=== PATIENT | male | born 1950 | race Caucasian/White ===

== ENCOUNTER 2018-04-08 08:12 | Day surgery (SDC) | payer MEDICARE, OTHER ==
[2018-04-08] VITALS (220 sets, daily range): BP systolic 117–151; BP diastolic 71–123; PULSE 61–79; TEMP 97.6–97.7; O2SAT 96–100
[~2018-04-08] VITALS: Ht 175.3 cm; Wt 74.7 kg
[2018-04-08] MEDS ORDERED: ASPIRIN E.C. 8181 MG PO (08:24)
[2018-04-08] MEDS ORDERED: LIPITOR 10MG10 MG PO (08:26)
[2018-04-08] MEDS ORDERED: TOPROL XL 25MG25 MG PO (08:26)
[2018-04-08] MEDS ORDERED: MULTI-VITAMIN W1 TA1 PO (08:27)
[2018-04-08 08:52] LABS: HEMATOCRIT 43.2 % (42.0-52.0); HEMOGLOBIN 14.6 g/dl (13.5-18.0); MEAN CELL VOLUME 93 fl (80.0-100.0); MEAN CORPUSCULAR HEMOGLOBIN 31 pg (27.0-31.0); MEAN CORPUSCULAR HGB CONC 34 g/dl (33.0-37.0); PLATELET COUNT 268 K/mm3 (130-400); RED BLOOD COUNT 4.66 M/mm3 (4.20-5.60); REDCELL DISTRIBUTION WIDTH-CV 12.9 % (11.5-14.5)
[2018-04-08 08:57] LABS: PROTHROMBIN TIME 11.8 SECONDS (9.7-12.8)
[2018-04-08 09:02] LABS: CREATININE, serum 0.7 mg/dL (0.66-1.25); POTASSIUM 4.2 mmol/L (3.4-5.0)
[2018-04-08] MEDS ORDERED: PRINIVIL10 MG PO (18:43)
[2018-04-08] MEDS ORDERED: LIPITOR 80MG80 MG PO (18:43)
[2018-04-09] VITALS: BP 145/80; PULSE 63; TEMP 97.7
[2018-04-09 04:00] VITALS: BP 137/90; PULSE 62; TEMP 97.7
[2018-04-09 05:16] LABS: BASO % 0.2 % (0.0-2.0); EOS # 0.2 (0.0-0.7); EOS % 2.8 % (0-4.0); GRAN % 61.3 % (42.2-75.2); HEMATOCRIT 40.4 % (42.0-52.0); LYMPH # 2.2 (1.2-3.4); LYMPH % 27.4 % (20.0-51.0); MEAN CELL VOLUME 91 fl (80.0-100.0); MEAN CORPUSCULAR HEMOGLOBIN 32 pg (27.0-31.0); MEAN CORPUSCULAR HGB CONC 35 g/dl (33.0-37.0); MONO # 0.7 (0.1-0.6); MONO % 8.2 % (1.7-9.3); PLATELET COUNT 238 K/mm3 (130-400); RED BLOOD COUNT 4.43 M/mm3 (4.20-5.60); REDCELL DISTRIBUTION WIDTH-CV 12.8 % (11.5-14.5)
[2018-04-09 05:48] LABS: CALCIUM 8.7 mg/dL (8.4-10.2); CREATININE, serum 0.62 mg/dL (0.66-1.25); POTASSIUM 3.8 mmol/L (3.4-5.0)
[2018-04-09 07:56] VITALS: BP 143/85; PULSE 66; TEMP 97.4
[2018-04-09] MEDS ORDERED: BRILINTA90 MG PO (12:12)
[2018-04-09] MEDS ORDERED: ZESTRIL 5MG5 MG PO (12:13)
== END 2018-04-09 12:45 | disposition home or self-care (01) ==
LOC: COL.CAR 08:12 → ICU 12:04 → COL.CAR 04-09 12:45
PROVIDERS: Internal Medicine Cardiovascular Disease; Nurse Practitioner
DX: I25.110 Atherosclerotic heart disease of native coronary artery with unstable angina pectoris (principal); I10 Essential (primary) hypertension; E78.5 Hyperlipidemia, unspecified
CPT/HCPCS: C9600; J0583; J2250; J3010; Q9967